=== PATIENT | male | born 1990 | race Caucasian/White ===

== ENCOUNTER 2017-09-16 08:41 | Emergency (ER) | payer OTHER ==
[2017-09-16 09:05] VITALS: BMI 36.5
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
[2017-09-16] MEDS ORDERED: IBUPROFEN 400 MG TABLET (FP) PO ONE ×2 (10:32→10:35)
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
[2017-09-16 11:24] VITALS: BP 117/71; PULSE 79; TEMP 98.1
== END 2017-09-16 11:25 | disposition home or self-care (01) ==
LOC: JER 08:41
DX: M54.2 Cervicalgia (principal); V53.5XXA Driver of pick-up truck or van injured in collision with car, pick-up truck or van in traffic accident, initial encounter; W22.11XA Striking against or struck by driver side automobile airbag, initial encounter; Y92.414 Local residential or business street as the place of occurrence of the external cause; Y93.89 Activity, other specified; Y99.8 Other external cause status
CPT/HCPCS: 99282-25